=== PATIENT | female | born 1965 | race Caucasian/White ===

== ENCOUNTER → 2024-04-06 15:01 | Outpatient (CLI) | payer OTHER, SELFPAY ==
--- NOTE | 2024-04-06 | DI.MRI.S_ITS ---
PROCEDURE: MR SHOULDER RT WO CON INDICATIONS: RIGHT SHOULDER PAIN TECHNIQUE: Noncontrast oblique coronal T2 fast spin echo with fat saturation, oblique sagittal T1 spin echo and T2 fast spin echo with fat saturation, axial T1 spin echo and T2 fast spin echo with fat saturation through the shoulder. COMPARISON: None. FINDINGS: Image quality: Excellent. Rotator cuff: There is focal high-grade interstitial tear at the footprint of the junction of the supraspinatus and infraspinatus (series 8, image 12). The teres minor is unremarkable. The subscapularis is unremarkable. No muscle edema or fatty atrophy. Bones and bursae: Moderate degenerative changes of the acromioclavicular joint. Type 2 acromion. No os acromiale. Mild subacromial/subdeltoid bursitis. There is marked subchondral marrow edema in the greater tuberosity, with mild subchondral cystic changes, which may be reactive versus marrow contusion. Additional mild subchondral cystic changes in the lesser tuberosity in the posterior aspect of the humeral head. No acute fracture. No focal chondral defects of the glenohumeral joint. Capsule and soft tissues: The labrum is intact. Mild tenosynovitis of the extra-articular biceps tendon. The intra-articular biceps tendon is intact. No significant glenohumeral effusion. Trace subcoracoid bursitis. IMPRESSION: 1. Moderate degenerative changes of the acromioclavicular joint. 2. Marked subchondral marrow edema in the greater tuberosity, which may be reactive versus marrow contusion. 3. Focal high-grade interstitial tear at the footprint of the junction of the supraspinatus infraspinatus. 4. Mild tenosynovitis of the extra-articular biceps tendon. Dictated by: Ana Conde M.D. on 04/06/2024 at 20:26 Approved by: Ana Conde M.D. on 04/06/2024 at 20:36
== END ==
LOC: MRI 15:03
PROVIDERS: Referring Provider Nurse Practitioner Family; Visit Provider Nurse Practitioner Family
DX: S46.011A Strain of muscle(s) and tendon(s) of the rotator cuff of right shoulder, initial encounter (principal); M65.811 Other synovitis and tenosynovitis, right shoulder; M25.519 Pain in unspecified shoulder; R60.0 Localized edema
CPT/HCPCS: 73221

== ENCOUNTER → 2025-02-24 16:59 | Outpatient (ROUT) | payer OTHER, SELFPAY | LOC: LAB 17:00 | DX: L72.0 Epidermal cyst (principal) | CPT/HCPCS: 87070; 87075; 87077; 87205 ==